=== PATIENT | female | born 2000 | race American Indian/Alaskan Native ===

== ENCOUNTER 2020-03-01 10:16 | Outpatient (CLI) | payer MEDICAID ==
--- NOTE | 2020-03-01 12:34 | Ultrasound Report ---
ULTRASOUND ABDOMEN LIMITED INDICATION: EPIGASTIC PAIN. COMPARISON: No relevant prior imaging study available. FINDINGS: Pancreas: No significant abnormality. Abdominal Aorta: No significant abnormality. IVC: No significant abnormality. Liver: The liver measures 13.2 cm in length. No significant abnormality. Normal hepatopedal blood fl ow in the main portal vein. Gallbladder: No significant abnormality. Bile ducts: No significant abnormality. Common bile duct measures 1 mm. Kidneys: Right: 10.5 cm in length. Free fluid: None. Additional Findings: None. IMPRESSION: Unremarkable right upper quadrant ultrasound. Signer Name: Casa Fish Jr, MD Signed: 03/01/2020 12:30 PM Workstation Name: [id number]
== END 2020-03-01 10:17 | disposition home or self-care (01) ==
LOC: US 10:16
PROVIDERS: ATTEND Internal Medicine Gastroenterology
DX: R10.13 Epigastric pain (principal)
CPT/HCPCS: 76700; 76705